=== PATIENT | female | born 1965 | race African-American/Black ===

== ENCOUNTER 2018-11-05 08:03 | Inpatient (IN) | payer MEDICARE ==
--- NOTE | 2018-10-29 16:15 | Diagnostic Imaging Report ---
Chest, 2 views, 10/29/2018. History: Preop, gastric bypass. Comparison: None available. Findings: The cardiomediastinal silhouette and pulmonary vasculature are within normal limits. The lungs are clear without evidence of consolidation or pleural effusion. There are no acute osseous or soft tissue abnormalities. Impression: No acute cardiopulmonary abnormality. Signed by: Samm Willard on 10/29/2018 4:11 PM
[2018-10-29 16:45] LABS: BASOPHILS % 0.6 % (0.0-1.0); EOSINOPHILS # (AUTO) 0.1 (0.0-0.4); EOSINOPHILS % 1.9 % (0.0-6.0); HEMATOCRIT 37.3 % (34.2-44.1); HEMOGLOBIN 11.5 g/dL (12.0-16.0); LYMPHOCYTES # (AUTO) 2.1 (1.0-3.2); LYMPHOCYTES % 38.7 % (18.0-39.1); MEAN CORPUSCULAR HEMOGLOBIN 23.8 pg (28-32); MEAN CORPUSCULAR HGB CONC 30.8 g/dL (31-35); MEAN CORPUSCULAR VOLUME 77.1 fL (81-99); MONOCYTES # (AUTO) 0.6 (0.2-0.8); MONOCYTES % 10.9 % (4.4-11.3); NEUTROPHILS # (AUTO) 2.5 (2.1-6.9); NEUTROPHILS % 47.7 % (38.7-80.0); PLATELET COUNT 364 x10e3/uL (140-360); RED BLOOD COUNT 4.84 x10e6/uL (3.6-5.1); RED CELL DISTRIBUTION WIDTH 17.1 % (11.7-14.4)
[2018-10-29 17:05] LABS: ANION GAP 17.4 mmol/L (8-16); BLOOD UREA NITROGEN 27 mg/dL (7-26); BUN/CREATININE RATIO 24 (6-25); CALCIUM 10.4 mg/dL (8.4-10.2); CARBON DIOXIDE 25 mmol/L (22-29); CHLORIDE 99 mmol/L (98-107); CREATININE, SERUM 1.12 mg/dL (0.57-1.11); EST GLOMERULAR FILTRATION RATE > 60 ML/MIN (60-); GLUCOSE 72 mg/dL (74-118); POTASSIUM 4.4 mmol/L (3.5-5.1); SODIUM 137 mmol/L (136-145)
[~2018-11-05] VITALS: Ht 165.1 cm; Wt 117.9 kg
[~2018-11-05 08:03] MED LIST: ACETAMINOP325 MG/10 PO; ATORVASTATIN CA20 MG PO; FISH OIL OMEGA1 EACH PO; FUROSEMIDE40 MG PO; JARDIANCE PO; LISINOPRIL2.5 MG PO; METFORMIN HCL500 MG PO; METOPROLOL SUCC50 MG PO; ONCE DAILY1 EACH PO; POTASSIUM CHLO20 ME1 PO; TRULICITY SQ
--- OUTSIDE RECORDS SUMMARY | 2018-11-05 08:08 | XMS REPORT ---
Author Author Natalio Miles Organization [employer] Address Unknown Phone Unavailable Care Team Providers Care Small Parts Assembler Name Role Phone Natalio Miles CP Unavailable Allergies No Known Allergies Problems Problem Type Condition Code Onset Dates Condition Status Problem Hyperlipidemia, unspecified E78.5 Active Problem Unspecified diastolic (congestive) heart failure I50.30 Active Problem Paroxysmal atrial fibrillation I48.0 Active Medications No Known Medications Results No Known Results Summary Purpose eClinicalWorks Submission
--- OUTSIDE RECORDS SUMMARY | 2018-11-05 08:08 | XMS REPORT ---
Author Author Natalio Miles Organization [employer] Address Unknown Phone Unavailable Care Team Providers Care Survival Specialist Name Role Phone Natalio Miles CP Unavailable Allergies No Known Allergies Problems Problem Type Condition Code Onset Dates Condition Status Problem Hyperlipidemia, unspecified E78.5 Active Problem Unspecified diastolic (congestive) heart failure I50.30 Active Problem Paroxysmal atrial fibrillation I48.0 Active Medications No Known Medications Results No Known Results Summary Purpose [employer]ClinicalWorks Submission
--- OUTSIDE RECORDS SUMMARY | 2018-11-05 08:08 | XMS REPORT ---
Author Author Natalio Miles Organization [employer] Address Unknown Phone Unavailable Care Team Providers Care Research Project Coordinator Name Role Phone Natalio Miles CP Unavailable Allergies No Known Allergies Problems Problem Type Condition Code Onset Dates Condition Status Problem Hyperlipidemia, unspecified E78.5 Active Problem Unspecified diastolic (congestive) heart failure I50.30 Active Problem Paroxysmal atrial fibrillation I48.0 Active Medications No Known Medications Results No Known Results Summary Purpose eClinicalWorks Submission
--- OUTSIDE RECORDS SUMMARY | 2018-11-05 08:08 | XMS REPORT | Continuity of Care Document ---
Author Author [employer] Address Unknown Phone Unavailable Care Team Providers Care Data Warehouse Developer Name Role Phone [employer] Unavailable Unavailable Problems Problem Status Onset Date Classification Date Reported Comments Source Unspecified diastolic (congestive) heart failure Active Problem 10/20/2018 Manav Lalito Hyperlipidemia, unspecified Active Problem 10/20/2018 Manav Lalito Paroxysmal atrial fibrillation Active Problem 10/20/2018 Manav Lalito Dyspnea, unspecified Active Diagnosis 05/08/2015 Manav Lalito Localized edema Active Diagnosis 05/08/2015 Manav Lalito Morbid (severe) obesity due to excess calories Active Diagnosis 05/08/2015 Manav Lalito Tachycardia, unspecified Active Diagnosis 05/08/2015 Manav Lalito Medications Medication Details Route Status Patient Instructions Ordering Provider Order Date Source Torsemide as directed Orally Active 20 MG Orally Once a day Miles 01/26/2018 Manav Lalito Metoprolol Succinate ER 1 tablet Orally Active 25 MG Orally Once a day Manav 01/22/2015 Manav Lalito Furosemide 1 tablet Orally Active 80 MG Orally Once a day Manav Manav Lalito Klor-Con M20 1 tablet Orally Active 20 MEQ Orally once a day Manav Manav Lalito Klor-Con M20 1 tablet Orally Active 20 MEQ Orally once a day Miles Manav Lalito Allergies, Adverse Reactions, Alerts Substance Category Reaction Severity Reaction type Status Date Reported Comments Source N.K.D.A. Adverse Reaction Info Not Available Adverse Reaction Active 01/22/2015 Manav Lalito Immunizations No Data Provided for This Section Results No Data Provided for This Section Pathology Reports No Data Provided for This Section Diagnostic Reports No Data Provided for This Section Consultation Notes No Data Provided for This Section Discharge Summaries No Data Provided for This Section History and Physicals No Data Provided for This Section Vital Signs Vital Sign Value Date Comments Source Weight 268 01/22/2015 Manav Lalito Height 65 01/22/2015 Manav Lalito Heart Rate 88 01/22/2015 Manav Lalito Diastolic (mm Hg) 80 01/22/2015 Manav Lalito Systolic (mm Hg) 130 01/22/2015 Manav Starkey Encounters Location Location Details Encounter Type Encounter Number Reason For Visit Attending Provider ADM Date DC Date Status Source Manav Starkey MD PA Results [id number] 01/22/2015 01/22/2015 Manav Starkey Procedures No Data Provided for This Section Assessment and Plan No Data Provided for This Section Plan of Care No Data Provided for This Section Social History Social History Date Source Social History ElementQualifiersDate Reported Do you smoke? . Are you a: Never Smoker Jan 22, 2015 Use of recreational / street drugs? . Answer: No Jan 22, 2015 Caffeine intake? . Status: Yes, What type: Coffee, Soft Drinks Jan 22, 2015 Do you exercise? . Answer: Yes, Type: daily house work, has not been able to continue exercise regimen due to her shortness of breath Jan 22, 2015 Do you drink alcohol? . Status: Yes, Type: Wine Occasional Jan 22, 2015 Occupation: . Stay at home parent Jan 22, 2015 01/22/2015 Manav Starkey Family History No Data Provided for This Section Advance Directives No Data Provided for This Section Functional Status No Data Provided for This Section
--- OUTSIDE RECORDS SUMMARY | 2018-11-05 08:09 | XMS REPORT ---
Author Author [facility] Address Unknown Phone Unavailable Care Team Providers Care Cloth Desizing Range Operator Chief Name Role Phone LATOSHARuth Unavailable Unavailable Problems This patient has no known problems. Allergies, Adverse Reactions, Alerts This patient has no known allergies or adverse reactions. Medications This patient has no known medications. Encounters Start Date/Time End Date/Time Encounter Type Admission Type Attending Clinicians Care Facility Care Department Encounter ID 2018-04-11 10:53:00 Inpatient U [facility] [id number] Results Test Description Test Time Test Comments Text Results Atomic Results Result Comments CHEST 2 VIEWS 2018-10-29 16:11:00 [place] [id number] Patient Name: JUAN HOLLINGSWORTH MR #: [id number] : 1965 Age/Sex: 53/F Req #: [id number] Adm Physician: Ordered by: CALEB JIMENEZ MD Report #: [id number] Location: OR Room/Bed: Procedure: [id number] DX/CHEST 2 VIEWS Exam Date: 10/29/18 Exam Time: 1544 REPORT STATUS: Signed Chest, 2 views, 10/29/2018. History: Preop, gastr ic bypass. Comparison: None available. Findings: The cardiomediastinal silhouette and pulmonary vasculature are within normal limits. The lungs are clear without evidence of consolidation or pleural effusion. There are no acute osseous or soft tissue abnormalities. Impression: No acute cardiopulmonary abnormality. Signed by: Samm Willard on 10/29/2018 4:11 PM Dictated By: SAMM WILLARD MD 10 Transcribed By: NICOLETTE on 10/29/181610 COPY TO: CALEB JIMENEZ MD CT Chest w/ Contrast 2018-01-11 12:46:47 Patient: JUAN HOLLINGSWORTH Date/Time01/11/2018 12:28 CDTReason for ExamInjuryReportCT OF THE CHEST WITH CONTRASTCT OF THE ABDOMEN AND PELVIS WITH CONTRASTLocation R 16HISTORY: TraumaTECHNIQUE:5 millimeters contrast enhanced axial images of the chest, abdomen and pelvis provided in venous delays. No PO contrast was administered. The images were reviewed in soft tissue, lung and bone windows. Sagittal and coronal images were reformatted. One or more the following dose reduction techniques is utilized: Use of iterative reconstruction, automated exposure control, adjustment of the mAs and Kv for the patient's weight. DLP 2111.1 mGy-cm. Estimated dose savings 0 %.COMPARISON: None.FINDINGS:Chest Findings:Lungs: Mild bibasilar atelectasis. No acute pulmonary infiltrate, pleural effusion or pneumothorax.Cardiac: Heart size is normal. No pericardial effusion.Great vessels: Aorta and main pulmonary artery appear intact, enhancing normally.Mediastinum: No fat stranding in the mediastinum. No hilar or mediastinal lymphadenopathy. No filling defects in the airways.Osseous: No acute osseous findings in the chest.Chest wall: No significant fat stranding or fluid collections noted in the chest wall.Abdomen Findings:Liver: No significant abnormality.Gallbladder: Diffuse hepatic steatosis with hepatomegaly at 24 cm craniocaudal.Pancreas: No significant abnormality.Spleen: No significant abnormality.Kidneys: No significant abnormality.Adrenals: No significant abnormality.Bowel: No bowel obstruction. No fluid or fat stranding around bowel loops. Appendix not clearly localized.Peritoneum/Abdominal wall: No free intra-abdominal air or fluid. Umbilical hernia measuring approximately 7 x 7 x 5.5 cm is primarily fat containing with a small, antimesenteric portion of bowel. No obstruction. Pelvis findings:Bladder: No significant abnormality.Uterus: Multiple uterine, partially calcified uterine fibroids measuring in the 2-2.5 cm range.Exam Date/Taras 01/11/2018 12:28 CDTReportAdnexal regions: No significant abnormality. Benign pelvic phleboliths are seen.Bone Windows: No acute osseous findings. Moderate diffuse facet joint hypertrophy evident at L5-S1 level.Vascular: Vascular structures enhance normally.Lymph nodes: No evidence of lymphadenopathy.IMPRESSION:1. No evidence of acute solid organ, vascular or osseous injury in the chest, abdomen and pelvis.2. Note of hepatomegaly with hepatic steatosis.3. Numerous uterine fibroids.4. 7 cm primarily fat containing umbilical hernia. Final Dictated by: MD Den, Nichelle FDictated DT/TM: 01/11/2018 12:38 pmSigned by: MD Den, Nichelle FSigned (Electronic Signature): 01/11/2018 12:[address] Abdomen and Pelvis w/ Contrast 2018-01-11 12:46:47 Patient: JUAN HOLLINGSWORTH Date/Time01/11/2018 12:28 CDTReason for ExamInjuryReportCT OF THE CHEST WITH CONTRASTCT OF THE ABDOMEN AND PELVIS WITH CONTRASTLocation R 16HISTORY: TraumaTECHNIQUE:5 millimeters contrast enhanced axial images of the chest, abdomen and pelvis provided in venous delays. No PO contrast was administered. The images were reviewed in soft tissue, lung and bone windows. Sagittal and coronal images were reformatted. One or more the following dose reduction techniques is utilized: Use of iterative reconstruction, automated exposure control, adjustment of the mAs and Kv for the patient's weight. DLP 2111.1 mGy-cm. Estimated dose savings 0 %.COMPARISON: None.FINDINGS:Chest Findings:Lungs: Mild bibasilar atelectasis. No acute pulmonary infiltrate, pleural effusion or pneumothorax.Cardiac: Heart size is normal. No pericardial effusion.Great vessels: Aorta and main pulmonary artery appear intact, enhancing normally.Mediastinum: No fat stranding in the mediastinum. No hilar or mediastinal lymphadenopathy. No filling defects in the airways.Osseous: No acute osseous findings in the chest.Chest wall: No significant fat stranding or fluid collections noted in the chest wall.Abdomen Findings:Liver: No significant abnormality.Gallbladder: Diffuse hepatic steatosis with hepatomegaly at 24 cm craniocaudal.Pancreas: No significant abnormality.Spleen: No significant abnormality.Kidneys: No significant abnormality.Adrenals: No significant abnormality.Bowel: No bowel obstruction. No fluid or fat stranding around bowel loops. Appendix not clearly localized.Peritoneum/Abdominal wall: No free intra-abdominal air or fluid. Umbilical hernia measuring approximately 7 x 7 x 5.5 cm is primarily fat containing with a small, antimesenteric portion of bowel. No obstruction. Pelvis findings:Bladder: No significant abnormality.Uterus: Multiple uterine, partially calcified uterine fibroids measuring in the 2-2.5 cm range.Exam Date/Taras 01/11/2018 12:28 CDTReportAdnexal regions: No significant abnormality. Benign pelvic phleboliths are seen.Bone Windows: No acute osseous findings. Moderate diffuse facet joint hypertrophy evident at L5-S1 level.Vascular: Vascular structures enhance normally.Lymph nodes: No evidence of lymphadenopathy.IMPRESSION:1. No evidence of acute solid organ, vascular or osseous injury in the chest, abdomen and pelvis.2. Note of hepatomegaly with hepatic steatosis.3. Numerous uterine fibroids.4. 7 cm primarily fat containing umbilical hernia. Final Dictated by: MD Crenshaw Eniola FDictated DT/TM: 01/11/2018 12:38 pmSigned by: MD Crenshaw Eniola FSigned (Electronic Signature): 01/11/2018 12:[address] Spine Thoracic w/o Contrast 2018-01-11 12:38:09 Patient: JUAN HOLLINGSWORTH Date/Time01/11/2018 12:28 CDTReason for ExamInjuryReportCT OF THE THORACIC SPINE WITHOUT CONTRASTHISTORY: TraumaLocation: [id number]:Axial noncontrast images of the thoracic spine were obtained. These are provided in soft tissue and bone windows. Coronal and sagittal reconstructions are provided. One or more the fol lowing dose reduction techniques is utilized: Use of iterative reconstruction, automated exposure control, adjustment of the mAs and Kv for the patient's weight. One or more the following dose reduction techniques is utilized: Use of iterative reconstruction, automated exposure control, adjustment of the mAs and Kv for the patient's weight.COMPARISON: NoneFINDINGS:12 nonrib-bearing thoracic vertebrae. Vertebral body heights and alignment are maintained. Mild disc space narrowing throughout the thoracic spine. No paravertebral soft tissue thickening.IMPRESSION:No evidence of acute fracture or subluxation involving the thoracic spine. Final Dictated by: MD Crenshaw Eniola FDictated DT/TM: 01/11/2018 12:35 pmSigned by: MD Crenshaw Eniola FSigned (Electronic Signature): 01/11/2018 12:[address] Spine Lumbar w/o Contrast 2018-01-11 12:32:02 Patient: JUAN HOLLINGSWORTH Date/Time01/11/2018 12:28 CDTReason for ExamInjuryReportEXAM: CT LUMBAR SPINE WITHOUT CONTRASTINDICATION: InjuryCOMPARISON: None availableTECHNIQUE: Axial CT imaging of the lumbar spine was obtained without administration of intravenous contrast. Sagittal and coronal reconstructions were submitted for review.IV contrast: None.FINDINGS:There are 5 nonrib-bearing lumbar vertebra. The vertebral bodies are normal in height, alignment and density. The facet joints and spinous processes are normal in alignment. There is mild facet joint arthropathy. Mild disc height loss throughout the lumbar spine.No spinal canal or neuroforaminal stenosis.No soft tissue abnormality is identified. The imaged portion of the abdomen is unremarkable.IMPRESSION:1. No acute abnormality of the lumbar spine.2. Facet joint arthropathy in the lower lumbar spine. Mild disc height loss.3. No spinal canal or neuroforaminal stenosis.LOCATION: [id number] CT exam was performed according to our departmental dose optimization program, which includes automated exposure control, adjustment of the mA and/or kV according to the patient size and/or use of iterative reconstructive technique. Final Dictated by: MD Tellez Melanie CDictated DT/TM: 01/11/2018 12:31 pmSigned by: MD Tellez Melanie CSigned (Electronic Signature): 01/11/2018 12:[address] Spine Cervical w/o Contrast 2018-01-11 12:23:23 Patient: JUAN HOLLINGSWORTH Date/Time01/11/2018 12:15 CDTReason for ExamInjuryReportLocation R 16CT SCAN OF THE HEAD WITHOUT CONTRASTCT C-SPINE WITHOUT CONTRASTCLINICAL HISTORY: Head injury. Head painTECHNIQUE: Helical CT was performed from the skull base to the vertex without IV contrast and provided at 5 mm slice thickness. Coronal and sagittal reconstruction provided. Axial images provided in bone windows as well. CT of the C-spine provided in soft tissue and bone windows with coronal and sagittal reconstructions. One or more the following dose reduction techniques is utilized: Use of iterative reconstruction, automated exposure control, adjustment of the mAs and Kv for the patient's weight. DLP 1433.4 mGy-cm. Estimated dose savings 18percent.FINDINGS:Brain:There is no CT evidence of acute infarct. No intra or extra-axial hemorrhage or fluid collections. No midline shift or mass effect. Posterior fossa contents are intact. Posterior fossa contents are unremarkable. Calvarium is intact.C-spine: Vertebral body height and alignment are maintained. Disc space height is preserved. No acute fracture. No prevertebral soft tissue thickening. Numerous shotty bilateral cervical lymph nodes. Paravertebral soft tissues are otherwise unremarkable.IMPRESSION:1. No evidence of acute intracranial process.2. No evidence of acute fracture or subluxation involving the C-spine. Final Dictated by: Chivo Danielle MD, Eniola FDictated DT/TM: 01/11/2018 12:21 pmSigned by: Chivo Danielle MD, Eniola FSigned (Electronic Signature): 01/11/2018 12:[address] Brain/Head w/o Contrast 2018-01-11 12:23:23 Patient: JUAN HOLLINGSWORTH Date/Time01/11/2018 12:15 CDTReason for ExamHead injuryReportLocation R 16CT SCAN OF THE HEAD WITHOUT CONTRASTCT C-SPINE WITHOUT CONTRASTCLINICAL HISTORY: Head injury. Head painTECHNIQUE: Helical CT was performed from the skull base to the vertex without IV contrast and provided at 5 mm slice thickness. Coronal and sagittal reconstruction provided. Axial images provided in bone windows as well. CT of the C-spine provided in soft tissue and bone windows with coronal and sagittal reconstructions. One or more the following dose reduction techniques is utilized: Use of iterative reconstruction, automated exposure control, adjustment of the mAs and Kv for the patient's weight. DLP 1433.4 mGy-cm. Estimated dose savings 18percent.FINDINGS:Brain:There is no CT evidence of acute infarct. No intra or extra-axial hemorrhage or fluid collections. No midline shift or mass effect. Posterior fossa contents are intact. Posterior fossa contents are unremarkable. Calvarium is intact.C-spine: Vertebral body height and alignment are maintained. Disc space height is preserved. No acute fracture. No prevertebral soft tissue thickening. Numerous shotty bilateral cervical lymph nodes. Paravertebral soft tissues are otherwise unremarkable.IMPRESSION:1. No evidence of acute intracranial process.2. No evidence of acute fracture or subl uxation involving the C-spine. Final Dictated by: MD Crenshaw Eniola FDictated DT/TM: 01/11/2018 12:21 pmSigned by: MD Crenshaw Eniola FSigned (Electronic Signature): 01/11/2018 12:23 pm
--- OUTSIDE RECORDS SUMMARY | 2018-11-05 08:09 | XMS REPORT ---
Author Author Natalio Miles Organization [employer] Address Unknown Phone Unavailable Care Team Providers Care Underground Repairer Name Role Phone aNtalio Miles CP Unavailable Allergies No Known Allergies Problems Problem Type Condition Code Onset Dates Condition Status Problem Hyperlipidemia, unspecified E78.5 Active Problem Unspecified diastolic (congestive) heart failure I50.30 Active Problem Paroxysmal atrial fibrillation I48.0 Active Assessment Unspecified diastolic (congestive) heart failure I50.30 Active Medications Medication Code System Code Instructions Start Date End Date Status Dosage Klor-Con M20 [facility] 00955069983 20 MEQ Orally once a day Active 1 tablet Results No Known Results Summary Purpose eClinicalWorks Submission
--- OUTSIDE RECORDS SUMMARY | 2018-11-05 08:09 | XMS REPORT ---
Author Author Natalio Miles Organization [employer] Address Unknown Phone Unavailable Care Team Providers Care Workshop Manager Name Role Phone Natalio Miles CP Unavailable Allergies No Known Allergies Problems Problem Type Condition Code Onset Dates Condition Status Problem Hyperlipidemia, unspecified E78.5 Active Problem Unspecified diastolic (congestive) heart failure I50.30 Active Problem Paroxysmal atrial fibrillation I48.0 Active Medications No Known Medications Results No Known Results Summary Purpose eClinicalWorks Submission
--- OUTSIDE RECORDS SUMMARY | 2018-11-05 08:09 | XMS REPORT ---
Author Author Natalio Miles Organization [employer] Address Unknown Phone Unavailable Care Team Providers Care Children Teacher Name Role Phone Natalio Miles CP Unavailable Allergies No Known Allergies Problems Problem Type Condition Code Onset Dates Condition Status Problem Unspecified diastolic (congestive) heart failure I50.30 Active Problem Hyperlipidemia, unspecified E78.5 Active Medications Medication Code System Code Instructions Start Date End Date Status Dosage Torsemide [facility] 13479892873 20 MG Orally Once a day Jan 26, 2018 Active as directed Results No Known Results Summary Purpose eClinicalWorks Submission
--- OUTSIDE RECORDS SUMMARY | 2018-11-05 08:09 | XMS REPORT ---
Author Author Katie Em Organization [employer] Address Unknown Phone Unavailable Care Team Providers Care Internet Cafe Manager Name Role Phone Katie Em CP Unavailable Allergies, Adverse Reactions, Alerts Substance Reaction Event Type N.K.D.A. Info Not Available Non Drug Allergy Encounters Encounter Location Date Results Manav Starkey MD [place] Jan 22, 2015 Problems Problem Type Condition ICD-9 Code Onset Dates Condition Status Assessment Dyspnea, unspecified R06.00 Active Assessment Localized edema R60.0 Active Assessment Morbid (severe) obesity due to excess calories E66.01 Active Assessment Tachycardia, unspecified R00.0 Active Medications Medication Code System Code Instructions Start Date End Date Status Dosage Furosemide [facility] [address]-47 80 MG Orally Once a day Active 1 tablet Klor-Con M20 [facility] [address]-24 20 MEQ Orally once a day Active 1 tablet Metoprolol Succinate ER [facility] [address]-35 25 MG Orally Once a day Jan 22, 2015 Active 1 tablet Social History Social History Element Qualifiers Date Reported Do you smoke? . 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
--- OUTSIDE RECORDS SUMMARY | 2018-11-05 08:09 | XMS REPORT ---
Author Author Natalio Miles Organization [employer] Address Unknown Phone Unavailable Care Team Providers Care Laboratory Technical Specialist Name Role Phone Natalio Miles CP Unavailable Allergies No Known Allergies Problems Problem Type Condition Code Onset Dates Condition Status Problem Unspecified diastolic (congestive) heart failure I50.30 Active Medications No Known Medications Results No Known Results Summary Purpose eClinicalWorks Submission
--- OUTSIDE RECORDS SUMMARY | 2018-11-05 08:09 | XMS REPORT ---
Author Author Natalio Miles Organization [employer] Address Unknown Phone Unavailable Care Team Providers Care Button Spindler Name Role Phone Natalio Miles CP Unavailable Allergies No Known Allergies Problems Problem Type Condition Code Onset Dates Condition Status Problem Hyperlipidemia, unspecified E78.5 Active Problem Unspecified diastolic (congestive) heart failure I50.30 Active Problem Paroxysmal atrial fibrillation I48.0 Active Medications No Known Medications Results No Known Results Summary Purpose eClinicalWorks Submission
[2018-11-05] MEDS ORDERED: CEFAZOLIN SOD 1 GM/NS 50ML 100 ML IV ONE (09:04)
[2018-11-05] MEDS ORDERED: BUPIVACAINE HCL 0.25% 10ML MPF VIAL INJ ONE (09:45)
[2018-11-05] MEDS ORDERED: IBUPROFEN IV ONE (12:17)
[2018-11-05] MEDS ORDERED: MORPHINE SULFATE 2 MG/ML SYR 1ML IV PRN (13:30)
[2018-11-05] MEDS ORDERED: DEXTROSE 50% SYRINGE 50 ML IV PRN (13:30)
[2018-11-05] MEDS ORDERED: SCOPOLAMINE 1.5 MG PATCH TOP SCH (14:00)
--- OUTSIDE RECORDS SUMMARY | 2018-11-05 14:03 | XMS REPORT | Continuity of Care Document ---
Author Author [facility] Address Unknown Phone Unavailable Care Team Providers Care Repacker Name Role Phone [employer] Unavailable Unavailable Problems Problem Status Onset Date [...] Status Source Manav Starkey MD [place] Results [id number] 01/22/2015 01/22/2015 Manav Starkey Procedures No Data [...]
[2018-11-05] MEDS: ONDANSETRON HCL INJ 2MG/ML 2ML 2 MG/ML VIAL IV PRN ×2 (14:11→19:55)
[2018-11-05] MEDS ORDERED: ONDANSETRON HCL INJ 2MG/ML 2ML 2 MG/ML VIAL ONE ×2 (14:13→14:32)
[2018-11-05] MEDS ORDERED: METOCLOPRAMIDE HCL 10 MG/2ML VIAL ONE (14:13)
--- NOTE | 2018-11-05 14:15 | Operative Report ---
DATE OF PROCEDURE: 11/05/2018 SURGEON: Dakota Braden MD PREOPERATIVE DIAGNOSES: 1. Morbid obesity. 2. BMI 43. 3. Type 2 diabetes mellitus. 4. Hypertension. 5. Congestive heart failure. 6. Hiatal hernia. 7. Chronic gastroesophageal reflux disease. POSTOPERATIVE DIAGNOSES: 1. Morbid obesity. 2. BMI 43. 3. Type 2 diabetes mellitus. 4. Hypertension. 5. Congestive heart failure. 6. Hiatal hernia. 7. Chronic gastroesophageal reflux disease. PREOPERATIVE INDICATION: 1. Treat disease, prevent complications. 2. Prevent complications related to hiatal hernia. PROCEDURES: 1. Laparoscopic Prakash-en-Y gastric bypass. 2. Laparoscopic hiatal hernia repair. ANESTHESIA: General. [employer] AND MISSI[employer] DEFENSE CREWMEMBER: Kane Barr, business banking sales assistant (needed due to complexity of case). FLUIDS: 1 L crystalloid. ESTIMATED BLOOD LOSS: 30 mL. DRAINS: None. COMPLICATIONS: None. SPECIMENS: None. GRAFTS: None. FINDINGS: 1. Normal upper GI anatomy, with evidence of a sliding hiatal hernia. 2. Negative intraoperative EGD leak test. PROCEDURE IN DETAIL: The patient was brought to the operating room. She was intubated under general endotracheal anesthesia. She was positioned supine with both arms abducted and all pressure points were appropriately padded. She was sterilely prepped and draped in the usual fashion. A preprocedure pause was performed identifying the patient, use of perioperative antibiotics, intended procedure, and the staff surgeon. A 5 mm left subcostal incision was made and a Veress needle was inserted, insufflated the abdomen to a pressure of 15 mmHg pressure. Four additional trocars were placed in the standard position. A liver retractor was used to expose the stomach and the hiatus. The gastrohepatic ligament was incised using the Harmonic Scalpel via the pars flaccida technique. I then dissected out a hiatal hernia from the right and left mirian of the diaphragm and repaired the hiatal hernia with 2-0 Surgidac suture in interrupted fashion. I then ligated the descending branches of the left gastric vessels coming off the left gastric pedicle using the [place] LigaSure device up to the level of the lesser curvature of the stomach. I then fired a 60 mm Endo-DEVON purple load bluepulse stapling device in a 90-degrees angle at the lesser curvature of stomach for a first firing. I then had multiple more firings to create a gastric pouch, which was about 20 mL in volume. The proximal staple line was oversewn with 2-0 Surgidac suture in an imbricating fashion. I then turned my attention to the small intestine and measured our biliopancreatic limb at 50 cm and divided this with a rizzo load stapling device. The mesentery down to the base was ligated with the Harmonic Scalpel. I then measured 150 cm distal to this for a Prakash limb and an end-to-side jejunojejunostomy was created with a firing of a 60 mm rizzo load stapling device. The common enterotomy site was also stapled off, anti-obstruction stitches with 2-0 Surgidac suture were placed on either end of the anastomosis and an imbricating fashion to prevent tension on the anastomosis. I then closed the mesentery defect with 2-0 Surgidac suture in a continuous fashion to prevent internal hernia. We then split the omentum and brought up the Prakash limb and did a posterior layer between the Prakash limb and the gastric pouch with 2-0 Surgidac suture in a continuous fashion, this was done in a Lembert fashion. Enterotomies are made both in the gastric pouch and the Prakash limb, and a linear anastomosis with a purple load at 3 cm in length was done. I then over sewed the enterotomy site with a 2-0 Polysorb suture beginning on either end of the anastomosis and tying this in the middle over an adult-sized endoscope, which was used as a bougie. I then over sewed the suture line with 2-0 Surgidac suture in a continuous fashion in the Lembert fashion. An intraoperative EGD leak test was performed. No leaks were identified. An omental patch was placed over the anastomosis with 2-0 Surgidac suture. I then closed Sanchez defect, the defect between the mesentery of the Prakash limb and the transverse mesocolon, in order to prevent herniation, this was closed with 2-0 Surgidac suture in a continuous fashion. I then closed the large port site with 0 Vicryl suture using the Ronald Ramya technique. We then verified hemostasis, removed the liver retractor and desufflated the abdomen. We then removed all the trocars. Incision sites were closed with 4-0 Monocryl suture in a subcu fashion. Dermabond dressings were applied. 0.25% bupivacaine was used both at the preperitoneal incision sites. All surgical sponge and instrument counts were correct. The patient tolerated the procedure well. Type of wound is type 2, clean and contaminated. MD DIONISIO Davila/REG /[id number]
[2018-11-05] MEDS ORDERED: ROCURONIUM BROMIDE 10 MG/ML 5ML VIAL ONE (14:32)
[2018-11-05] MEDS ORDERED: PROPOFOL IV EMULSION 10 MG/ML 20 ML VIAL ONE (14:32)
[2018-11-05] MEDS ORDERED: DEXAMETHASONE SOD PHOS INJ 4 MG/ML VIAL ONE (14:32)
[2018-11-05] MEDS ORDERED: ACETAMINOPHEN 1000 MG/100 ML IV ONE (14:32)
[2018-11-05] MEDS ORDERED: GLYCOPYRROLATE INJ 1MG/ 5 ML SYR ONE (14:32)
[2018-11-05] MEDS ORDERED: NEOSTIGMINE 5 MG/5ML SYR ONE (14:32)
[2018-11-05] MEDS ORDERED: LIDOCAINE HCL 2% LOCAL INJ 5 ML SDV VIAL INJ ONE (14:32)
[2018-11-05] MEDS ORDERED: DESFLURANE 240 ML BTL INH ONE (14:32)
[2018-11-05] MEDS ORDERED: EPHEDRINE SULFATE INJ 50 MG/10 ML SYR ONE (14:32)
[2018-11-05] MEDS ORDERED: KETOROLAC TROMETHAMINE 30 MG/ML VIAL ONE (14:34)
[2018-11-05] MEDS ORDERED: FENTANYL CITRATE/PF 100MCG/2 ML INJ ONE ×2 (14:35→14:36)
[2018-11-05] MEDS ORDERED: MIDAZOLAM HCL 2 MG/2 ML VIAL ONE (14:36)
--- NOTE | 2018-11-05 16:10 | History and Physical ---
CHIEF COMPLAINT: "I had weight loss surgery." HISTORY OF PRESENT ILLNESS: This is a 53-year-old woman, who presented to [facility] with a diagnosis of extreme obesity, BMI of 42 complicating underlying congestive heart failure, hypertension, and type 2 diabetes mellitus. Today, the patient underwent successful laparoscopic Prakash-en-Y bypass and hiatal hernia repair. The patient tolerated surgery quite well. The patient is currently in the post anesthesia care unit and her pain is well controlled. She is somnolent, but arousable. On October 29, 2018, the patient was found to have hemoglobin of 11.5 g/dL. The patient's MCV was low at 77, RDW 17.1. On October 29, 2018, the patient had a BUN and creatinine of 27 and 1.12 respectively. Potassium is 4.4. REVIEW OF SYSTEMS: GENERAL: Weight has been stable. No fever or chills. HEENT: No headaches. No vision changes. CARDIOVASCULAR/RESPIRATORY: No chest pain. No shortness of breath or cough. GI: No nausea, vomiting, or constipation. : Norman catheter removed. NEUROMUSCULAR: No limb weakness or numbness. PAST MEDICAL HISTORY: 1. Extreme obesity, BMI 42. 2. Hypertensive heart disease. 3. Type 2 diabetes mellitus. 4. Chronic diastolic congestive heart failure. 5. Hyperlipidemia. FAMILY HISTORY: Multiple family members with congestive heart failure. MEDICATIONS: 1. Acetaminophen 325 mg b.i.d. p.r.n. pain. 2. Atorvastatin 10 mg at bedtime. 3. Furosemide 40 mg b.i.d. 4. Lisinopril 2.5 mg daily. 5. Metformin 1000 mg b.i.d. 6. Metoprolol succinate 50 mg daily. 7. Multivitamin once daily. 8. [place]-3 fish oil one tab daily. 9. Potassium chloride 20 mEq daily. 10. Jardiance 25 mg daily. 11. Trulicity 0.75 mg subcutaneous weekly. ALLERGIES: NO KNOWN DRUG ALLERGIES. SOCIAL HISTORY: The patient is single. She lives in her house with her children. No history of tobacco or alcohol use. She is unemployed. SURGICAL HISTORY: 1. Laparoscopic Prakash-en-Y gastric bypass and hiatal hernia repair today. 2. Plantar fasciitis surgery. PHYSICAL EXAMINATION: GENERAL: She is somnolent, but arousable. She is in the post anesthesia care unit. VITAL SIGNS: Blood pressure is 106/60, pulse is 44, respiratory rate 14, and oxygen saturation 93% on 3 L oxygen. Height is 5 feet 5 inches, weight 255 pounds, BMI 42. INTEGUMENT: Skin is warm and dry. No pallor, jaundice, or diaphoresis. HEENT: Anicteric sclerae. Moist mucous membranes. NECK: Supple. No evidence of jugular venous distention. CARDIOVASCULAR: Distant heart sounds. Regular rate and rhythm with an S3 gallop. LUNGS: No rales. No rhonchi or wheezes. ABDOMEN: Obese, benign. The patient's laparoscopic incisions are clean, dry, and intact. No edema in legs. She is currently wearing sequential compression devices. NEUROLOGIC: Intact. No gross focal deficits appreciated. ADMITTING DIAGNOSES: 1. Extreme obesity, BMI of 42 complicating underlying congestive heart failure, hypertension, and type 2 diabetes mellitus. 2. Status post laparoscopic Prakash-en-Y gastric bypass and hiatal hernia repair. 3. Chronic diastolic congestive heart failure. 4. Hypertensive heart disease. 5. Type 2 diabetes mellitus. PLAN: 1. Restart home medications. 2. Glucose monitor and control. 3. Blood pressure monitor and control. 4. We will continue supplemental oxygen at this time. 5. Mobilize with physical therapy. 6. We will encourage incentive spirometer use to prevent atelectasis. 7. We will start enoxaparin subcutaneous injections this evening to prevent deep venous thrombosis prophylaxis. I spent 35 minutes in the care of the patient. MD AGUSTÍN Winter/REG /[id number] MICHELLE
[2018-11-05] MEDS: INSULIN REGULAR, HUMAN 100 UNIT/1 ML 3ML VIAL SQ SCH ×2 (16:30→20:51)
--- NOTE | 2018-11-05 17:05 | NUR ---
received to rm [id number] no distress noted updated on poc voiced understanding, ivf infusing to L fa 20g no ss of infiltration noted, 5 trochar sites to abdomen c/d/i, no other co vocied call light in reach will continue to monitor
[2018-11-05 17:24] VITALS: BP 114/58
[2018-11-05 17:40] VITALS: BP 114/58
[2018-11-05] MEDS ORDERED: ACETAMINOPHEN 325 MG/10 ML UDC PO PRN (18:30)
--- NOTE | 2018-11-05 19:00 | NUR ---
RECEIVED PATIENT IN BEDSIDE REPORT. PATIENT RESTING IN BED AT THIS TIME. PATIENT REPORTS MANAGEABLE PAIN OF 5/10. REQUESTS TO WAIT A WHILE LONGER BEFORE PAIN MEDS. 5 TROCHAR SITES C/D/I. L FA 20G IV ASYMPTOMATIC, INTACT, AND PATENT, RUNNING AT 75 ML/HR. NO S&S OF DISTRESS NOTED. BED LOCKED IN LOWEST POSITION, SIDE RAILS UPX2, CALL LIGHT IN REACH.
[2018-11-05 20:00] VITALS: BP 102/56
[2018-11-05 20:44] VITALS: BP 102/56
[2018-11-05] MEDS: ATORVASTATIN 20 MG TAB PO SCH (21:28)
[2018-11-05] MEDS: ENOXAPARIN SOD INJ 40 MG/0.4 ML SYR SC SCH (21:29)
[2018-11-06] VITALS (9 sets, daily range): BP systolic 90–95; BP diastolic 53–68
--- NOTE | 2018-11-06 00:23 | NUR ---
PATIENT'S BP READING LOW ON DYNAMAP, CHECKED MANUALLY TWICE, SPACED 10 MINS APART, PLACED ON R FOREARM, 92/58 BOTH TIMES. PATIENT STATES SHE DOES NOT FEEL LIGHTHEADED OR WEAK. ONLY HAS PAIN. PATIENT'S BP HAS BEEN BELOW 120 THROUGHOUT STAY. TOLD PATIENT TO MAKE SURE SHE CALLS BEFORE GETTING OUT OF BED SO STAFF CAN ASSIST HER AND MAKE SURE SHE IS STEADY. TOLD HER TO CALL IF SHE FEELS ANYTHING OTHER THAN PAIN. WILL CONTINUE TO MONITOR.
[2018-11-06] MEDS: HYDROCODONE/APAP 7.5MG-325MG 1 EA TAB PO PRN ×5 (00:35→21:09)
--- NOTE | 2018-11-06 03:35 | NUR ---
PATIENT AMBULATED TO RESTROOM WITH STAFF ASSIST. PATIENT STRONGER ON FEET COMPARED TO PREVIOUS AMBULATION. ASSISTED BACK TO BED. PATIENT STATES SHE FELT FINE WALKING TO TOILET, BUT FELT NAUSEATED AND WEAKER WHEN SHE ATTEMPTED TO STAND UP. STAFF ASSISTED PATIENT TO STANDING AND WALKED PATIENT TO BED. PRN MEDICATION GIVEN.
[2018-11-06] MEDS: ONDANSETRON HCL INJ 2MG/ML 2ML 2 MG/ML VIAL IV PRN (03:37)
--- NOTE | 2018-11-06 04:11 | NUR ---
PATIENT'S SBP CONTINUES TO BE BELOW 100. PATIENT REPORTS NO SYMPTOMS. EMPHASIZED NEED TO CALL BEFORE STANDING, PATIENT VERBALIZED UNDERSTANDING. ENCOURAGED PATIENT TO PURCHASE BP MONITOR TO USE AT HOME, AND CONTACT DOCTOR IF BP CONTINUES TO RUN LOW. PATIENT VERBALIZED UNDERSTANDING AND STATED SHE WOULD.
[2018-11-06] MEDS: SODIUM CHLORIDE 0.9% 1000ML 1,000 ML IV SCH ×3 (04:13→20:28)
[2018-11-06 05:29] LABS: BASOPHILS % 0.1 % (0.0-1.0); HEMATOCRIT 33.7 % (34.2-44.1); HEMOGLOBIN 9.9 g/dL (12.0-16.0); LYMPHOCYTES % 13.9 % (18.0-39.1); MEAN CORPUSCULAR HEMOGLOBIN 23.4 pg (28-32); MEAN CORPUSCULAR HGB CONC 29.4 g/dL (31-35); MEAN CORPUSCULAR VOLUME 79.7 fL (81-99); MONOCYTES # (AUTO) 0.7 (0.2-0.8); NEUTROPHILS # (AUTO) 5.5 (2.1-6.9); NEUTROPHILS % 76.9 % (38.7-80.0); PLATELET COUNT 280 x10e3/uL (140-360); RED BLOOD COUNT 4.23 x10e6/uL (3.6-5.1); RED CELL DISTRIBUTION WIDTH 17.7 % (11.7-14.4)
[2018-11-06 05:51] LABS: ALANINE AMINOTRANSFERASE 37 IU/L (0-55); ALBUMIN 3.2 g/dL (3.5-5.0); ALBUMIN/GLOBULIN RATIO 0.9 (0.8-2.0); ALKALINE PHOSPHATASE 72 IU/L (40-150); ANION GAP 17.5 mmol/L (8-16); BLOOD UREA NITROGEN 15 mg/dL (7-26); BUN/CREATININE RATIO 15 (6-25); CALCIUM 9.5 mg/dL (8.4-10.2); CARBON DIOXIDE 21 mmol/L (22-29); CHLORIDE 103 mmol/L (98-107); CREATININE, SERUM 1.01 mg/dL (0.57-1.11); EST GLOMERULAR FILTRATION RATE > 60 ML/MIN (60-); GLUCOSE 97 mg/dL (74-118); PHOSPHORUS 4.6 MG/DL (2.3-4.7); POTASSIUM 4.5 mmol/L (3.5-5.1); SODIUM 137 mmol/L (136-145)
[2018-11-06 06:22] LABS: LYMPHOCYTES % (MANUAL) 11 % (19-48); MONOCYTES % (MANUAL) 12 % (3.4-9.0); NEUTROPHILS % (MANUAL) 77 % (40-74)
[2018-11-06 06:23] LABS: PLATELET ESTIMATE ADEQUATE; RBC MORPHOLOGY COMMENT NORMAL
--- NOTE | 2018-11-06 07:05 | NUR ---
received shift change report from night worker RN, pt resting in bed, in stable condition, will continue to monitor.
[2018-11-06] MEDS ORDERED: HYDROCODONE/APAP 7.5MG-325MG 1 EA TAB PO PRN (07:30)
[2018-11-06] MEDS: INSULIN REGULAR, HUMAN 100 UNIT/1 ML 3ML VIAL SQ SCH ×4 (07:30→20:36)
--- NOTE | 2018-11-06 08:17 | NUR ---
S: Some nausea after getting out of bed; tolerating liquids O: AF, VSS Gen- no distress Abd- soft, incisions c/d/i A/P: POD 1, s/p lap scottie en y gastric bypass -clears, ambulate, IS, OOB to chair -cont lovenox prophylaxis -dc per Dr. Allison recommendations -f/u with me in 1 week
[2018-11-06] MEDS: FUROSEMIDE 40 MG TAB PO SCH ×2 (09:00→10:48)
[2018-11-06] MEDS: METOPROLOL SUCCINATE 50 MG TAB XL PO SCH (09:00)
[2018-11-06] MEDS: LISINOPRIL 2.5 MG TAB PO SCH (09:00)
[2018-11-06] MEDS ORDERED: MULTIVITAMIN PO SCH (09:00)
[2018-11-06] MEDS: JARDIANCE 25 MG PO SCH (09:00)
[2018-11-06] MEDS ORDERED: NON-FORMULARY MEDICATION (Omega-3/Dha/Epa/Fish Oil (Fish Oil Omega-3 Softgel) 1 TAB) PO SCH (09:00)
[2018-11-06] MEDS: OMEGA 3 POLYUNSAT FATTY ACIDS 1000 MG SOFTGEL PO SCH (09:20)
[2018-11-06] MEDS: ENOXAPARIN SOD INJ 40 MG/0.4 ML SYR SC SCH ×2 (09:20→16:40)
[2018-11-06] MEDS: MULTIVITAMINS/MINERALS TAB PO SCH (09:20)
--- NOTE | 2018-11-06 10:20 | NUR ---
ambulated in halls, denies dizziness and pain, will continue to monitor
--- NOTE | 2018-11-06 10:50 | NUR ---
Nutrition Education Note: Learner(s): pt and daughter Time spent: 25minutes Barriers: none Cultural/Language Modifications: No cultural/language modifications noted. Pt speaks [place]. Readiness: acceptance Method: explanation/ discussion, handout Topics: Bariatric diet (clear liquid, full liquid, pureed) Understanding/Compliance: good compliance expected, needs reinforcement at outpatient bariatric clinic, all questions have been answered Signed by Shakila Herbert, MS, RD, LD
--- NOTE | 2018-11-06 11:00 | NUR ---
pt sitting in chair, no distress noted, denies pain at this time, call light in reach will continue to monitor
--- NOTE | 2018-11-06 11:07 | NUR ---
pt got up from bed, ambulated up and down hallway with RN, no distress noted, pt tolerated well. pt placed back in room sitting upright in chair at bedside, daughters arrived at bedside, will continue to monitor.
--- NOTE | 2018-11-06 12:40 | NUR ---
pt placed back to bed call light in reach, scd placed, will continue to monitor
--- NOTE | 2018-11-06 14:35 | NUR ---
Visit made by the Spiritual Care Department Pastoral Visitor, Jesi Sutton. Pt sleeping soundly and no family present. Pastoral Visitor left a card describing availability of belt maker helper and instructions on how to contact a belt maker helper. [facility] Emergency Services Professional Spiritual Care Department O: [phone] Pager: [phone] ([phone] number calling from)
--- NOTE | 2018-11-06 15:30 | NUR ---
pt ambulated in hallway tolerated well, denies dizziness or pain call light in reach will continue to monitor
[2018-11-06] MEDS ORDERED: MAGNESIUM HYDROXIDE 30 ML UDC PO PRN (16:15)
[2018-11-06] MEDS: BISACODYL 5 MG TAB EC PO PRN (16:40)
--- NOTE | 2018-11-06 19:00 | NUR ---
RECEIVED PATIENT IN BEDSIDE REPORT. PATIENT RESTING IN BED AT THIS TIME. PAIN IS 4/10. NO S&S OF DISTRESS. BED LOCKED IN LOWEST POSITION, SIDE RAILS UPX2, CALL LIGHT IN REACH.
--- NOTE | 2018-11-06 19:14 | NUR ---
BEDSIDE SHIFT CHANGE REPORT GIVEN TO ONCOMING RN, PT AMBULATED TO BR WITHOUT DIFFICULTY, IN STABLE CONDITION.
[2018-11-06] MEDS: ATORVASTATIN 20 MG TAB PO SCH (21:09)
--- NOTE | 2018-11-06 21:09 | NUR ---
PATIENT STATES THAT PAIN IS MIGRATING UP HER ABDOMEN, STATES SHE HAS NOT YET PASSED GAS SINCE THE PROCEDURE YESTERDAY. EXPLAINED TO PATIENT HER PAIN COULD BE FROM GAS BUILDING UP IN HER ABDOMEN, AND ENCOURAGED HER TO WALK TO INCREASE MOVEMENT IN HER BOWELS. PATIENT AMBULATING AT THIS TIME. STEADY GAIT NOTED.
[2018-11-07] VITALS: BP 85/47
[2018-11-07 04:00] VITALS: BP 101/59
[2018-11-07] MEDS: SODIUM CHLORIDE 0.9% 1000ML 1,000 ML IV SCH (05:25)
[2018-11-07 05:37] LABS: BASOPHILS % 0.4 % (0.0-1.0); EOSINOPHILS # (AUTO) 0.1 (0.0-0.4); EOSINOPHILS % 2.2 % (0.0-6.0); HEMATOCRIT 32.4 % (34.2-44.1); HEMOGLOBIN 9.7 g/dL (12.0-16.0); LYMPHOCYTES # (AUTO) 1.7 (1.0-3.2); MEAN CORPUSCULAR HEMOGLOBIN 24.1 pg (28-32); MEAN CORPUSCULAR HGB CONC 29.9 g/dL (31-35); MEAN CORPUSCULAR VOLUME 80.4 fL (81-99); MONOCYTES # (AUTO) 0.5 (0.2-0.8); MONOCYTES % 10.5 % (4.4-11.3); NEUTROPHILS # (AUTO) 2.7 (2.1-6.9); NEUTROPHILS % 52.7 % (38.7-80.0); PLATELET COUNT 231 x10e3/uL (140-360); RED BLOOD COUNT 4.03 x10e6/uL (3.6-5.1); RED CELL DISTRIBUTION WIDTH 18.2 % (11.7-14.4)
[2018-11-07 05:58] LABS: ALANINE AMINOTRANSFERASE 25 IU/L (0-55); ALBUMIN 2.9 g/dL (3.5-5.0); ALBUMIN/GLOBULIN RATIO 0.9 (0.8-2.0); ALKALINE PHOSPHATASE 62 IU/L (40-150); ANION GAP 14.1 mmol/L (8-16); BLOOD UREA NITROGEN 10 mg/dL (7-26); BUN/CREATININE RATIO 13 (6-25); CARBON DIOXIDE 19 mmol/L (22-29); CHLORIDE 107 mmol/L (98-107); CREATININE, SERUM 0.79 mg/dL (0.57-1.11); EST GLOMERULAR FILTRATION RATE > 60 ML/MIN (60-); GLUCOSE 74 mg/dL (74-118); POTASSIUM 4.1 mmol/L (3.5-5.1); SODIUM 136 mmol/L (136-145)
[2018-11-07] MEDS: HYDROCODONE/APAP 7.5MG-325MG 1 EA TAB PO PRN (06:24)
--- NOTE | 2018-11-07 07:05 | NUR ---
received patient lying in bed with eyes open and Resp even and unlabored. TV on. no c/o pain at this time. call light within reach.
[2018-11-07] MEDS: INSULIN REGULAR, HUMAN 100 UNIT/1 ML 3ML VIAL SQ SCH ×2 (07:30→11:30)
[2018-11-07 07:52] VITALS: BP 104/55
[2018-11-07 08:15] VITALS: BP 104/55
[2018-11-07] MEDS: FUROSEMIDE 40 MG TAB PO SCH ×2 (09:00→15:57)
[2018-11-07] MEDS: JARDIANCE 25 MG PO SCH (09:00)
[2018-11-07] MEDS: LISINOPRIL 2.5 MG TAB PO SCH (09:00)
[2018-11-07] MEDS: METOPROLOL SUCCINATE 50 MG TAB XL PO SCH (09:00)
[2018-11-07] MEDS: ENOXAPARIN SOD INJ 40 MG/0.4 ML SYR SC SCH ×2 (09:39→15:57)
[2018-11-07] MEDS: MULTIVITAMINS/MINERALS TAB PO SCH (09:39)
[2018-11-07] MEDS: OMEGA 3 POLYUNSAT FATTY ACIDS 1000 MG SOFTGEL PO SCH (09:39)
--- NOTE | 2018-11-07 09:50 | NUR ---
per patient to d/c home today, awaiting walker for home use however per MD do not hold up discharge.
[2018-11-07] MEDS: BISACODYL 5 MG TAB EC PO PRN (09:54)
--- NOTE | 2018-11-07 10:13 | Discharge Summary ---
ADMIT DIAGNOSES: 1. Extreme obesity, BMI of 42 complicating underlying congestive heart failure, hypertensive heart disease, and type 2 diabetes. 2. Chronic diastolic congestive heart failure. 3. Hypertensive heart disease. 4. Type 2 diabetes mellitus. DISCHARGE DIAGNOSES: 1. Status post laparoscopic Prakash-en-Y gastric bypass and hiatal hernia repair. 2. Extreme obesity, BMI of 42 complicating underlying congestive heart failure, hypertensive heart disease, and type 2 diabetes mellitus. 3. Chronic diastolic congestive heart failure. 4. Hypertensive heart disease. 5. Type 2 diabetes mellitus. HOSPITAL COURSE: This is a 53-year-old woman, who was admitted to [facility] with a diagnosis of extreme obesity, BMI of 42 complicating underlying congestive heart failure, hypertension, type 2 diabetes mellitus. During this hospitalization, the patient underwent successful laparoscopic Prakash-en-Y gastric bypass and hiatal hernia repair. This surgery was performed by her bariatric surgeon namely Dr. Dakota Braden. The patient tolerated surgery quite well. The patient was discharged home in stable condition. On discharge, she was tolerating a full liquid diet. The patient was instructed to restart her blood pressure medications, namely furosemide, metoprolol, and lisinopril 2 days after discharge, namely Friday November 09, 2018. DISCHARGE MEDICATIONS: 1. Acetaminophen 325 mg b.i.d. p.r.n. pain. 2. Atorvastatin 10 mg at bedtime. 3. Furosemide 40 mg b.i.d. 4. Lisinopril 2.5 mg daily. 5. Metformin 1000 mg b.i.d. 6. Metoprolol succinate 50 mg daily. 7. Multivitamins daily. 8. [place]-3 fish oil 1000 mg daily. 9. Potassium chloride 20 mEq daily. 10. Jardiance 25 mg daily. 11. Trulicity 0.75 mg subcutaneous weekly. 12. Tylenol No.3 one pill every 4 hours p.r.n. pain, 30 prescribed. 13. Zofran 4 mg p.o. q.6 hours p.r.n. nausea, vomiting. FOLLOWUP INSTRUCTIONS: Once again, the patient is instructed to restart her blood pressure medications, namely furosemide, lisinopril, metoprolol succinate on Friday November 09, 2018. The patient is instructed to follow up with Dr. Dakota Braden in 1 week. The patient is instructed to follow up with her primary care physician namely, Dr. Karlee Juarez within two weeks. MD AGUSTÍN Winter/REG /[id number] cc: Dakota Braden MD MTDD
[2018-11-07 11:48] VITALS: BP 100/67
--- NOTE | 2018-11-07 15:45 | NUR ---
Patient is to be discharged today to home. 20g PIV to left FA discontinued, catheter tip intact, no bleeding noted. Denies pain. Respiration even and unlabored without SOB. Patient is waiting for her daughter to pick her up.
[2018-11-07 16:45] VITALS: BP 123/71
--- NOTE | 2018-11-07 17:17 | NUR ---
patient escorted to front lobby entrance, via wheelchair, where daughter awaiting in private auto. safely transferred into auto.
[2018-11-09] MEDS ORDERED: TRULICITY 0.75 MG SQ SCH (09:00)
== END 2018-11-07 17:17 | disposition home or self-care (01) | DRG 620 ==
LOC: OR 08:03 → PACU V 13:56 → MED/SURG 17:07
PROVIDERS: ADMIT Internal Medicine; ATTEND Internal Medicine
PROC: 0D164Z9 Bypass Stomach to Duodenum, Percutaneous Endoscopic Approach (ICD-10-PCS; principal; 2018-11-05 10:30)
PROC: 0DQV4ZZ Repair Mesentery, Percutaneous Endoscopic Approach (ICD-10-PCS; 2018-11-05 10:30)
DX: E66.01 Morbid (severe) obesity due to excess calories (principal); I50.32 Chronic diastolic (congestive) heart failure; K44.9 Diaphragmatic hernia without obstruction or gangrene; Z68.41 Body mass index [BMI] 40.0-44.9, adult; E11.9 Type 2 diabetes mellitus without complications; I11.0 Hypertensive heart disease with heart failure; Z79.84 Long term (current) use of oral hypoglycemic drugs
CPT/HCPCS: 36415; 71046; 80048; 80053; 81025; 82948; 83735; 84100; 85025; 93005; 96361; J0690; J1100; J1650; J1885; J2001; J2250; J2270; J2405; J2765; J3010; J7030